=== PATIENT | male | born 2000 ===

== ENCOUNTER → 2018-08-17 20:19 | Outpatient (REF) | payer OTHER, SELFPAY ==
[2018-08-17 21:42] LABS: HIV 1 and 2 Antibody NEGATIVE (NEGATIVE); Hep C Virus Ab w/Reflex Quant NEGATIVE s/c (NEGATIVE)
[2018-08-17 22:04] LABS: Urine N gonorrhoeae NOT DETECTED
[2018-08-17 22:05] LABS: Urine Chlamydia NOT DETECTED
[2018-08-20 13:57] LABS: HSV 1 IgM Screen Negative (Negative); HSV 2 IgM Screen Negative (Negative)
[2018-08-22 06:58] LABS: RPR Screen Nonreactive (Nonreactive)
== END ==
LOC: LAB 20:19
PROVIDERS: Visit Provider Family Medicine
DX: Z11.3 Encounter for screening for infections with a predominantly sexual mode of transmission (principal); Z11.4 Encounter for screening for human immunodeficiency virus [HIV]
CPT/HCPCS: 36415; 86592; 86694; 86703; 86803; 87491; 87591

== ENCOUNTER → 2018-11-02 19:08 | Outpatient (ROUT) | payer OTHER, SELFPAY ==
[2018-11-02 19:48] LABS: Add Manual Diff / Slide Review NO; Basophils Absolute Auto 100 /uL (0-100); Basophils Percent Auto 0.4 % (0-2); Eosinophils Absolute Auto 200 /uL (0-450); Eosinophils Percent Auto 1.2 % (2-4); Hematocrit 43.8 % (41-53); Lymphocytes Absolute Auto 1700 /uL (1100-4500); Mean Corpuscular HGB Conc 34.2 % (30-36); Mean Corpuscular Hemoglobin 30.9 PG (26-34); Mean Corpuscular Volume 90.2 fL (80-100); Monocytes Absolute Auto 1700 /uL (0-900); Monocytes Percent Auto 9.2 % (3-14); Neutrophils Absolute Auto 15100 /uL (1500-7000); Neutrophils Percent Auto 80.2 % (50-75); Platelet Count 264 X10^3/uL (150-400); Red Blood Cell Count 4.86 X10^6/uL (4.5-5.9); White Blood Cell Count 18.9 X10^3/uL (4.5-11.0)
[2018-11-02 19:51] LABS: Monotest Negative (Negative)
== END ==
PROVIDERS: Visit Provider Family Medicine
DX: R53.83 Other fatigue (principal)
CPT/HCPCS: 36415; 85025; 86318